=== PATIENT | male | born 2000 | race African-American/Black ===

== ENCOUNTER 2025-03-03 09:51 | Outpatient (CLI) | payer OTHER, SELFPAY ==
--- NOTE | ~2025-03-03 | CT_ITS ---
EXAMINATION: CT sinus wo con DATE: 03/03/2025 10:04 INDICATION: Chronic sinusitis. Deviated septum. TECHNIQUE: Computed tomography (CT) of the paranasal sinuses was performed without intravenous contrast. Iterative reconstruction technique was employed. The dose-length product was 281.78 mGy-cm. COMPARISON: None FINDINGS: The frontal sinuses are clear. There is mild mucosal thickening in the right ethmoid sinuses. The sphenoid sinuses are clear. There is mild mucosal thickening in the maxillary sinuses. There is leftward deviation of the nasal septum. There is sandra bullosa involving right middle turbinate. The ostiomeatal units are patent. IMPRESSION: 1. Mild mucosal thickening in the paranasal sinuses. 2. Leftward deviation of the nasal septum. Reviewed, dictated and finalized at location E.
== END 2025-03-03 09:52 | disposition home or self-care (01) ==
LOC: MICIMG 09:52
PROVIDERS: PCP Internal Medicine Infectious Disease; Visit Provider Otolaryngology
DX: J32.9 Chronic sinusitis, unspecified (principal); J34.2 Deviated nasal septum
CPT/HCPCS: 70486